=== PATIENT | female | born 1995 | race African-American/Black ===

== ENCOUNTER 2016-10-05 19:48 | Emergency (ER) | payer MEDICAID ==
[~2016-10-05] VITALS: Ht 152.4 cm; Wt 72.6 kg
[~2016-10-05 19:48] MED LIST: INHA1EAC
[2016-10-05 19:50] VITALS: BP 156/106; PULSE 89; RESP 18; TEMP 97.8; O2SAT 98
--- NOTE | 2016-10-05 19:55 | NUR ---
Placed in Hallway 1 . Placed on hospital monitor, blood pressure machine and pulse oximeter. To gown for exam. Side rails up. Report given to NICOLE Ordaz.
--- NOTE | 2016-10-05 20:00 | NUR ---
Patient moved to room 03. Patient placed in gown, vital signs stable, no acute distress noted.
--- NOTE | 2016-10-05 21:02 | NUR ---
Pt presents to ED with c/o generalized abdominal pain, aching, 10/10, started around 1900, with nausea and diarrhea. A&Ox4, denies SOB or chestpain, skin intact. No hemotypsis noted. Will continue to monitor
--- NOTE | 2016-10-05 21:05 | NUR ---
MD fernandez at bedside examining pt
[2016-10-05] MEDS ORDERED: NACL 0.9% 1,000 ML IV ONE (21:09)
[2016-10-05] MEDS ORDERED: KETOROLAC TROMETHAMINE 30 MG VIAL IVP ONE (21:15)
[2016-10-05] MEDS ORDERED: ONDANSETRON HCL 4 MG/2 ML VIAL IVP ONE ×2 (21:15→23:30)
[2016-10-05 21:16] LABS: BILIRUBIN,URINE NEGATIVE (NEGATIVE); BLOOD, URINE NEGATIVE (NEGATIVE); CLARITY/URINE CLEAR (CLEAR); COLOR,URINE YELLOW (YELLOW); GLUCOSE,URINE NEGATIVE (NEGATIVE); KETONES,URINE NEGATIVE (NEGATIVE); LEUKOCYTE ESTERASE ,URINE NEGATIVE (NEGATIVE); NITRITE, URINE NEGATIVE (NEGATIVE); PROTEIN URINE NEGATIVE (NEGATIVE); UROBILINOGEN,URINE 0.2 (0.2-1.0)
[2016-10-05 21:28] LABS: HEMATOCRIT 33.5 % (36-48); HEMOGLOBIN 10.4 g/dL (12.0-16.0); MEAN CORPUSCULAR HEMOGLOBIN 24 pg (27-31); MEAN CORPUSCULAR HGB CONC 31 % (32-36); MEAN CORPUSCULAR VOLUME 77 fL (79.0-98.0); PLATELET COUNT (AUTO) 219 K/uL (130-430); RED BLOOD CELL COUNT(AUTO) 4.36 MIL/uL (4.2-6.2); RED CELL DISTRIBUTION WIDTH 13.5 % (9.0-15.0); WHITE BLOOD COUNT (AUTO) 15.2 K/uL (4.8-10.8)
[2016-10-05] MEDS ORDERED: ACETAMINOPHEN 325 MG TABLET PO ONE (21:30)
[2016-10-05 21:43] LABS: BAND % (MANUAL) 1 % (0-6); BASOPHILS % (MANUAL) 0 % (0-2); EOSINOPHILS % (MANUAL) 0 % (0-7); LYMPHOCYTES % (MANUAL) 3 % (20-46); MONOCYTES % (MANUAL) 2 % (0-11)
[2016-10-05 21:45] LABS: CALCIUM 9.5 mg/dL (8.4-11.0); CREATININE 0.76 mg/dL (0.55-1.30); POTASSIUM 3.5 mmol/L (3.5-5.1)
[2016-10-05 21:49] LABS: TOTAL BILIRUBIN 0.7 mg/dL (0.0-1.0); TOTAL PROTEIN, SERUM 8.6 g/dL (6.4-8.3)
--- NOTE | 2016-10-05 22:05 | NUR ---
Pt stated pain is tolerable,will continue to monitor
--- NOTE | 2016-10-05 23:15 | NUR ---
Pt appeared resting comfortably in bed
[2016-10-05] MEDS ORDERED: PANTOPRAZOLE SODIUM 40 MG/VIAL (PROTONIX) IVP ONE (23:30)
--- NOTE | 2016-10-06 00:15 | NUR ---
Pt denies pain, stated she feels better
[2016-10-06 01:05] VITALS: BP 142/87; PULSE 88; RESP 18; TEMP 97.8; O2SAT 98
--- NOTE | 2016-10-06 01:05 | NUR ---
Patient given written and verbal discharge instructions and verbalizes understanding. ER MD Berg discussed with patient the results and treatment provided. Patient in stable condition. ID arm band removed. IV catheter removed intact and dressing applied, no active bleeding. Rx of zofran given. Patient educated on pain management and to follow up with PMD. Pain Scale 0/10 Opportunity for questions provided and answered.
== END 2016-10-06 01:05 | disposition home or self-care (01) ==
LOC: SED 19:48
DX: R11.2 Nausea with vomiting, unspecified (principal); R10.84 Generalized abdominal pain; R19.7 Diarrhea, unspecified; J45.909 Unspecified asthma, uncomplicated; D64.9 Anemia, unspecified; Z91.013 Allergy to seafood
CPT/HCPCS: 36415; 80053; 81003; 81025; 83605; 83690; 85007; 85027; 87040; 96361; 96374; 96375; 96376; 99284; C9113; J1885; J2405; J7030

== ENCOUNTER 2021-09-12 23:58 | Emergency (ER) | payer OTHER, SELFPAY ==
[~2021-09-12] VITALS: Ht 172.7 cm; Wt 77.1 kg
[~2021-09-12 23:58] MED LIST changes: +EPIN0.3P3 IM; +FAMO20TA8 PO; +PRED20TA PO
[2021-09-13 00:10] VITALS: BP_SYST 135
--- NOTE | 2021-09-13 00:10 | NUR ---
Patient came in to the ER c/o 1 day history of flulike symptoms with fever, body aches, joint pains, slight cough but no chest pain or shortness of breath. There is no nausea or vomiting or any other GI symptoms. Patient breathing easy, resp even unlabored. Ambulatory with steady gait
--- NOTE | 2021-09-13 00:11 | NUR ---
LUCIA Dasilva in tent examining patient.
--- NOTE | 2021-09-13 00:15 | NUR ---
Patient swabbed for Covid19 testing
--- NOTE | 2021-09-13 02:05 | NUR ---
Swabbed nares for Covid19 testing (PCR), sentt to lab
[2021-09-13 02:10] VITALS: BP_SYST 132
--- NOTE | 2021-09-13 02:10 | NUR ---
Patient given written and verbal discharge instructions and verbalizes understanding. ER MD discussed with patient the results and care provided. Patient in stable condition. ID arm band removed. IV catheter removed intact and dressing applied, no active bleedingNo Rx given. Patient educated on pain management and to follow up with PMD. Opportunity for questions provided and answered.
== END 2021-09-13 02:10 | disposition home or self-care (01) ==
LOC: SED 23:58
DX: B34.9 Viral infection, unspecified (principal); J45.909 Unspecified asthma, uncomplicated; Z91.013 Allergy to seafood; Z20.822 Contact with and (suspected) exposure to COVID-19
CPT/HCPCS: 36415; 87426; 99283; U0003; C9803